=== PATIENT | female | born 1990 | race Asian ===

== ENCOUNTER 2022-02-18 19:54 | Inpatient (IN) | payer OTHER ==
[~2022-02-18] VITALS: Ht 152.4 cm; Wt 61.4 kg
[2022-02-18 20:45] VITALS: BP 123/67
[2022-02-18] MEDS ORDERED: OXYTOCIN DRIP 30 UNITS in IV 1 EA IV PRN ×6 (20:50)
[2022-02-18] MEDS ORDERED: METHYLERGONOVINE MALEATE 0.2 MG/ML VIAL (J2210) IM PRN (20:50)
[2022-02-18] MEDS ORDERED: LIDOCAINE 1% MDV 20ML VIAL INFIL PRN (20:50)
[2022-02-18] MEDS ORDERED: TRANEXAMIC ACID INJection 1,000 MG in NS 100 ML IV PRN (20:50)
[2022-02-18 21:04] LABS: HEMATOCRIT 35.9 % (36.0-47.0); HEMOGLOBIN 12.2 g/dl (12.0-15.5); MEAN CORPUSCULAR HEMOGLOBIN 30.3 pg (27.0-33.0); MEAN CORPUSCULAR VOLUME 89.3 fl (80.0-96.0); PLATELET COUNT, AUTOMATED 202 10^3/uL (150-450); RED BLOOD COUNT 4.02 10^6/uL (4.00-5.40); WHITE BLOOD COUNT 7.5 10^3/uL (4.0-10.0)
[2022-02-18] MEDS ORDERED: LACTATED RINGER'S 1000 ML IV STA (21:07)
[2022-02-18] MEDS ORDERED: FLOV100A INH (21:40)
[2022-02-18] MEDS ORDERED: SING10TA32 PO (21:40)
[2022-02-18] MEDS ORDERED: OXYTOCIN DRIP 30 UNITS in IV 1 EA IV SCH (21:55)
[2022-02-18] MEDS: LR 1,000 ML IV SCH ×2 (21:55→22:01)
[2022-02-18 22:00] VITALS: BP 125/64
[2022-02-18 22:31] VITALS: BP 109/57
[2022-02-18 23:01] VITALS: BP 110/52
[2022-02-18 23:31] VITALS: BP 109/51
[2022-02-19] VITALS (49 sets, daily range): BP systolic 103–143; BP diastolic 50–82
[2022-02-19] MEDS ORDERED: FENTANYL 2MCG/ML ROPIVACAINE 0.2% IN 0.9% NACL 100ML IVBAG As Ordered ONE (02:48)
[2022-02-19] MEDS ORDERED: REFRIGERATOR IV KEYS XX PRN (03:30)
[2022-02-19] MEDS ORDERED: ONDANSETRON 4MG/2ML VIAL IV PRN (03:30)
[2022-02-19] MEDS ORDERED: NALOXONE INJ 0.4MG/1ML VIAL (J2310 PER 1MG) IV PRN (03:30)
[2022-02-19] MEDS ORDERED: diphenhydrAMINE 50MG/ML VIAL (J1200) IV PRN (03:30)
[2022-02-19] MEDS ORDERED: FENTANYL/ROPIVACAINE/NACL BAG 100 ML EPIDURAL SCH (03:30)
[2022-02-19] MEDS ORDERED: ePHEDrine SULFATE 25 MG/5 ML(5MG/ML) SYRINGE IV PRN (03:30)
[2022-02-19] MEDS ORDERED: LACTATED RINGER'S 1000 ML IV PRN (03:30)
[2022-02-19] MEDS ORDERED: EPIDURAL/PCA KEYS XX PRN (03:30)
[2022-02-19] MEDS ORDERED: EPIDURAL COMMENT XX SCH (03:30)
[2022-02-19] MEDS: LR 1,000 ML IV SCH ×2 (05:10→08:36)
[2022-02-19] MEDS: FLUTICASONE HFA 110 MCG 12 GM INHALER (FLOVENT) INH SCH ×2 (08:00→20:51)
[2022-02-19] MEDS: PRENATAL VITAMINS CHEWABLE TABLET PO SCH (09:00)
[2022-02-19] MEDS ORDERED: METHYLERGONOVINE MALEATE 0.2 MG TAB PO PRN (10:40)
[2022-02-19] MEDS ORDERED: ACETAMINOPHEN TAB 650MG DOSE (2X325MG) PO PRN (10:40)
[2022-02-19] MEDS ORDERED: DOCUSATE SODIUM 100MG CAPSULE PO PRN (10:40)
[2022-02-19] MEDS ORDERED: ACETAMINOPHEN 500 MG TAB PO PRN (10:40)
[2022-02-19] MEDS ORDERED: IBUPROFEN 800 MG TAB PO PRN (10:40)
[2022-02-19] MEDS ORDERED: IBUPROFEN 600MG TAB PO PRN (10:40)
[2022-02-19] MEDS ORDERED: OXYTOCIN DRIP 30 UNITS in IV 1 EA IV SCH ×4 (10:40)
[2022-02-19] MEDS ORDERED: DIBUCAINE 1% OINTMENT 30GM TOP PRN (10:40)
[2022-02-19] MEDS ORDERED: MONTELUKAST 10 MG TAB PO SCH (21:00)
[2022-02-20] MEDS ORDERED: IBUP-1022 PO (05:57)
[2022-02-20] MEDS ORDERED: PRENCHW PO (05:57)
[2022-02-20] MEDS ORDERED: ACET1TAB55 PO (05:57)
[2022-02-20] MEDS ORDERED: COLA100C5 PO (05:57)
[2022-02-20] MEDS: PRENATAL VITAMINS CHEWABLE TABLET PO SCH (09:27)
[2022-02-20] MEDS: FLUTICASONE HFA 110 MCG 12 GM INHALER (FLOVENT) INH SCH (09:33)
== END 2022-02-20 14:00 | disposition home or self-care (01) | DRG 807 ==
LOC: M LDI 19:54 → M OBS 02-19 12:45
PROVIDERS: ADMIT Obstetrics & Gynecology; ATTEND Obstetrics & Gynecology
PROC: 10E0XZZ Delivery of Products of Conception, External Approach (ICD-10-PCS; principal; 2022-02-19)
DX: O34.211 Maternal care for low transverse scar from previous cesarean delivery (principal); Z37.0 Single live birth; O36.0990 Maternal care for other rhesus isoimmunization, unspecified trimester, not applicable or unspecified; Z3A.39 39 weeks gestation of pregnancy; Z88.0 Allergy status to penicillin; O24.420 Gestational diabetes mellitus in childbirth, diet controlled; J45.909 Unspecified asthma, uncomplicated; O99.52 Diseases of the respiratory system complicating childbirth; O69.1XX0 Labor and delivery complicated by cord around neck, with compression, not applicable or unspecified; O36.5990 Maternal care for other known or suspected poor fetal growth, unspecified trimester, not applicable or unspecified